=== PATIENT | female | born 1960 | race Caucasian/White ===

== ENCOUNTER 2017-10-15 11:33 | Emergency (ER) | payer SELFPAY ==
[2017-10-15] MEDS ORDERED: TETANUS & DIPHTHERIA TOX,ADULT 0.5 ML VIAL ONE (14:20)
[2017-10-15 14:50] LABS: Bicarbonate 26 mEq/L (21-31); Glucose Level 103 mg/dL (65-120); Sodium Level 136 mEq/L (135-145)
[2017-10-15 14:51] LABS: BUN Blood Urea Nitrogen 18 mg/dL (6-20)
--- NOTE | 2017-10-15 14:53 | RAD REPORT ---
EXAM DESCRIPTION: RAD -Hand Left 3 View - 10/15/2017 2:31 pm CLINICAL HISTORY: Left hand pain status post injury FINDINGS: No fracture or dislocation is seen.
[2017-10-15 14:56] LABS: Absolute Lymphocytes (CBC) 1.7 K/uL (0.7-4.9); Absolute Monocytes 0.5 K/uL (0.1-1.3); Basophils % 0.3 % (0-1.3); Eosinophils % 1.4 % (0-4.4); Lymphocytes % 26.9 % (15.3-44.8); MCH 30.8 pg (27.0-35.0); MCV 93.7 fL (80-100); MPV 8.1 fL (7.6-11.3); Monocytes % 8.3 % (3.3-12.3)
[2017-10-15] MEDS ORDERED: AMPICILLIN/SULBACT 3 GM in NA CHLORIDE 0.9% 100 ML IVPB ONE (15:00)
--- NOTE | 2017-10-15 16:03 | ER ---
Nurse's Notes [facility] Name: Ashley Zelaya Age: 57 yrs Sex: Female : 1960 Arrival Date: 10/15/2017 Time: 11:34 Bed 24 Private MD: None, None Diagnosis: Laceration without foreign body of left middle finger without damage to nail Presentation: 10/15 11:44 Presenting complaint: Patient states: left 3rd finger laceration that occurred 2 days sv ago and has been swelling since then. Pt reports cutting chicken at the time and was cut by the knife. Transition of care: patient was not received from another setting of care. Onset of symptoms was October 13, 2017. Risk Assessment: Do you want to hurt yourself or someone else? Patient reports no desire to harm self or others. Care prior to arrival: None. 11:44 Method Of Arrival: Ambulatory sv 11:44 Acuity: CARLA 3 sv 14:25 Initial Sepsis Screen: Does the patient meet any 2 criteria? No. Patient's initial ss sepsis screen is negative. Does the patient have a suspected source of infection? No. Patient's initial sepsis screen is negative. Historical: - Allergies: 11:46 No Known Allergies; sv - Home Meds: 11:46 None [Active]; sv - PMHx: 11:46 None; sv - PSHx: 11:46 None; sv - Immunization history:: Adult Immunizations up to date. - Social history:: Smoking status: Patient uses tobacco products, smokes one pack cigarettes per day. - Ebola Screening: : No symptoms or risks identified at this time. Screenin:07 Abuse screen: Denies threats or abuse. Denies injuries from another. Nutritional ss screening: No deficits noted. Tuberculosis screening: Never had TB. Fall Risk No fall in past 12 months (0 pts). Assessment: 14:07 General: Appears in no apparent distress. comfortable, Behavior is calm, cooperative, ss healing laceration noted to L third finger. Pt reports she cut it on unknown object three or four days ago. states, "it bled for two days, and started throbbing last night. I noticed the swelling yesterday.". Pain: Complains of pain in dorsal aspect of middle phalanx of left middle finger and dorsal aspect of proximal phalanx of left middle finger Pain currently is 8 out of 10 on a pain scale. Quality of pain is described as throbbing, Pain began 1 day ago. Is continuous, Aggravated by increased activity. Neuro: Level of Consciousness is awake, alert, obeys commands, Oriented to person, place, time, situation. Cardiovascular: Capillary refill < 3 seconds is brisk in bilateral fingers Patient's skin is warm and dry. Respiratory: Airway is patent Trachea midline Respiratory effort is even, unlabored, Respiratory pattern is regular, symmetrical, Breath sounds are clear bilaterally. GI: Patient currently denies diarrhea, nausea, vomiting. : No signs and/or symptoms were reported regarding the genitourinary system. EENT: Oral mucosa is moist. Poor dentition noted. Derm: Skin is intact, is healthy with good turgor, Skin is dry, Skin is pink, warm \\T\\ dry. normal. Musculoskeletal: Range of motion: intact in all extremities, Swelling present in dorsal aspect of middle phalanx of left middle finger and dorsal aspect of proximal phalanx of left middle finger. Vital Signs: 11:46 BP 114 / 77; Pulse 69; Resp 16; Temp 97.9; Pulse Ox 99% ; sv ED Course: 11:34 Patient arrived in ED. sb2 11:34 None, None is Private Physician. sb2 11:45 Triage completed. sv 11:45 Arm band placed on right wrist. sv 14:04 Deepa Brandon FNP-C is [facility]. snw 14:04 Seamus May MD is Attending Physician. snw 14:07 Patient has correct armband on for positive identification. Bed in low position. Call ss light in reach. Side rails up X 1. 14:25 X-ray completed. Portable x-ray completed in exam room. Patient tolerated procedure ag1 well. 14:26 Hand Left 3 View XRAY In Process Unspecified. EDMS 14:30 Inserted saline lock: 22 gauge in right antecubital area, using aseptic technique. Blood collected. 14:44 Mica Leon, MOHAMUD is Primary Nurse. ss 14:55 Wound care: to laceration x 4 days old located on dorsal aspect of proximal phalanx of ss left middle finger and dorsal aspect of middle phalanx of left middle finger was cleaned with Hibiclens, soaked in Hibiclens and normal saline. 16:01 Jerod Domingo MD is Referral Physician. snw 16:20 No provider procedures requiring assistance completed. IV discontinued, intact, ss bleeding controlled, No redness/swelling at site. Pressure dressing applied. 16:20 splint placed to L third finger as ordered. ss Administered Medications: 14:45 Drug: Hibiclens 4 % 1 application Route: Topical; Site: left hand; ss 14:45 Drug: Tetanus-Diphtheria Toxoid Adult 0.5 ml {Water And Gas Helper: [employer]. Exp: ss 01/12/2020. Lot #: [id number]. } Route: IM; Site: right deltoid; 15:33 Follow up: Response: No adverse reaction ss 14:46 Drug: Unasyn 3 grams Route: IVPB; Infused Over: 30 mins; Site: right antecubital; ss 15:32 Follow up: IV Status: Completed infusion ss 16:19 Drug: [place] 5 mg-325 mg 1 tabs Route: PO; ss 16:19 Follow up: Response: Medication administered at discharge. ss Outcome: 16:03 Discharge ordered by . snw 16:22 Discharged to home ambulatory. ss 16:22 Condition: good 16:22 Discharge instructions given to patient, Instructed on discharge instructions, follow up and referral plans. medication usage, Demonstrated understanding of instructions, follow-up care, medications, Prescriptions given X 3. 16:23 Patient left the ED. ss Signatures: Dispatcher [employer] Janina Gonsalves, RN RN Deepa Brandon, FLARE STITCHER-C FLARE STITCHER-Mica Segovia RN RN Jojo Christian ag1 Xi Hughes sb2 Corrections: (The following items were deleted from the chart) 14:11 14:07 General: Appears in no apparent distress. comfortable, Behavior is calm, ss cooperative, ss
--- NOTE | 2017-10-15 16:03 | EDPHYS ---
Physician Documentation [facility] Name: Ashley Zelaya Age: 57 yrs Sex: Female : 1960 Arrival Date: 10/15/2017 Time: 11:34 Bed 24 Private MD: None, None ED Physician Seamus May HPI: 10/15 15:33 This 57 yrs old Female presents to ER via Ambulatory with complaints of snw Finger Injury. 15:33 Trauma demographics: County: The injury occurred in [place] Location of Injury: The snw injury occurred at home. Mechanism of injury: laceration with kitchen knife. Associated injuries: The patient sustained decreased range of motion, laceration, painful injury, swelling. Onset: The symptoms/episode began/occurred suddenly, and became persistent. The patient has not experienced similar symptoms in the past. It is unknown whether or not the patient has recently seen a physician. Historical: - Allergies: 11:46 No Known Allergies; sv - Home Meds: 11:46 None [Active]; sv - PMHx: 11:46 None; sv - PSHx: 11:46 None; sv - Immunization history:: Adult Immunizations up to date. - Social history:: Smoking status: Patient uses tobacco products, smokes one pack cigarettes per day. - Ebola Screening: : No symptoms or risks identified at this time. ROS: 15:31 Constitutional: Negative for fever, chills, and weight loss, Eyes: Negative for injury, snw pain, redness, and discharge, ENT: Negative for injury, pain, and discharge, Neck: Negative for injury, pain, and swelling, Cardiovascular: Negative for chest pain, palpitations, and edema, Respiratory: Negative for shortness of breath, cough, wheezing, and pleuritic chest pain, Abdomen/GI: Negative for abdominal pain, nausea, vomiting, diarrhea, and constipation, Back: Negative for injury and pain, : Negative for injury, bleeding, discharge, and swelling, MS/Extremity: Negative for injury and deformity, Neuro: Negative for headache, weakness, numbness, tingling, and seizure. 15:31 Skin: Positive for laceration(s), of the dorsal aspect of middle phalanx of left middle finger, injury occurred 2 days ago, left middle digit now swollen, tender, extension mildly limited. Exam: 14:23 Constitutional: This is a well developed, well nourished patient who is awake, alert, snw and in no acute distress. Head/Face: Normocephalic, atraumatic. Eyes: Pupils equal round and reactive to light, extra-ocular motions intact. Lids and lashes normal. Conjunctiva and sclera are non-icteric and not injected. Cornea within normal limits. Periorbital areas with no swelling, redness, or edema. ENT: Nares patent. No nasal discharge, no septal abnormalities noted. Tympanic membranes are normal and external auditory canals are clear. Oropharynx with no redness, swelling, or masses, exudates, or evidence of obstruction, uvula midline. Mucous membranes moist. Neck: Trachea midline, no thyromegaly or masses palpated, and no cervical lymphadenopathy. Supple, full range of motion without nuchal rigidity, or vertebral point tenderness. No Meningismus. Chest/axilla: Normal chest wall appearance and motion. Nontender with no deformity. No lesions are appreciated. Cardiovascular: Regular rate and rhythm with a normal S1 and S2. No gallops, murmurs, or rubs. Normal PMI, no JVD. No pulse deficits. Respiratory: Lungs have equal breath sounds bilaterally, clear to auscultation and percussion. No rales, rhonchi or wheezes noted. No increased work of breathing, no retractions or nasal flaring. Abdomen/GI: Soft, non-tender, with normal bowel sounds. No distension or tympany. No guarding or rebound. No evidence of tenderness throughout. Back: No spinal tenderness. No costovertebral tenderness. Full range of motion. Neuro: Awake and alert, GCS 15, oriented to person, place, time, and situation. Cranial nerves II-XII grossly intact. Motor strength 5/5 in all extremities. Sensory grossly intact. Cerebellar exam normal. Normal gait. Psych: Awake, alert, with orientation to person, place and time. Behavior, mood, and affect are within normal limits. 14:23 Musculoskeletal/extremity: ROM: limited active range of motion due to pain, in the dorsal aspect of proximal phalanx of left middle finger, Circulation is intact in all extremities. Sensation intact. 14:23 Skin: injury, laceration(s), the wound is approximately 2 cm(s), with a depth of 1 cm(s), of the dorsal aspect of proximal phalanx of left middle finger. Vital Signs: 11:46 BP 114 / 77; Pulse 69; Resp 16; Temp 97.9; Pulse Ox 99% ; sv MDM: 14:05 Patient medically screened. snw 16:05 Data reviewed: vital signs, nurses notes. Data interpreted: Pulse oximetry: on room air snw is 99 %. Interpretation: normal. Counseling: I had a detailed discussion with the patient and/or guardian regarding: the historical points, exam findings, and any diagnostic results supporting the discharge/admit diagnosis, lab results, radiology results, the need for outpatient follow up, to return to the emergency department if symptoms worsen or persist or if there are any questions or concerns that arise at home. Special discussion: I discussed in detail with the patient the higher chance of wound infection based on his presenting history. Based on the history and exam findings, there is no indication for further emergent testing or inpatient evaluation. I discussed with the patient/guardian the need to see the hand specialist for further evaluation of the symptoms. I discussed with the patient/guardian the need to see the primary care provider for further evaluation of the symptoms. 10/15 14:16 Order name: CBC with Diff; Complete Time: 15:11 snw 10/15 14:16 Order name: Chem 7; Complete Time: 14:54 snw 10/15 14:16 Order name: Hand Left 3 View XRAY; Complete Time: 14:54 snw 10/15 14:16 Order name: Blood Culture* snw 10/15 16:01 Order name: Wound dressing; Complete Time: 16:11 snw 10/15 16:01 Order name: Finger Splint: in full extension until follow up; Complete Time: 16:11 snw Administered Medications: 14:45 Drug: Hibiclens 4 % 1 application Route: Topical; Site: left hand; ss 14:45 Drug: Tetanus-Diphtheria Toxoid Adult 0.5 ml {[employer] Consultant: [employer]. Exp: ss 01/12/2020. Lot #: [id number]. } Route: IM; Site: right deltoid; 15:33 Follow up: Response: No adverse reaction ss 14:46 Drug: Unasyn 3 grams Route: IVPB; Infused Over: 30 mins; Site: right antecubital; ss 15:32 Follow up: IV Status: Completed infusion ss 16:19 Drug: [place] 5 mg-325 mg 1 tabs Route: PO; ss 16:19 Follow up: Response: Medication administered at discharge. ss Disposition: 10/15/17 16:03 Discharged to Home. Impression: Laceration without foreign body of left middle finger without damage to nail. - Condition is Stable. - Discharge Instructions: Delayed Wound Closure, Laceration Care, Adult, Tendon Injury, Wound Infection, VIS, Tetanus, Diphtheria (Td) - [facility]. - Prescriptions for Keflex 500 mg Oral Capsule - take 1 capsule by ORAL route every 8 hours for 10 days; 30 capsule. Diclofenac Sodium 75 mg Oral Tablet Sustained Release - take 1 tablet by ORAL route 2 times per day; 30 tablet. Bactrim DS 800- 160 mg Oral Tablet - take 1 tablet by ORAL route every 12 hours for 10 days; 20 tablet. - Medication Reconciliation Form, Thank You Letter, Antibiotic Education, Prescription Opioid Use form. - Follow up: Jerod Domingo MD; When: 1 - 2 days; Reason: Recheck today's complaints, Continuance of care, Re-evaluation by your physician. Addendum: 10/19/2017 12:00 Co-signature as Attending Physician, Seamus May MD. g s Signatures: Dispatcher [employer] Janina Gonsalves RN RN Deepa Seymour, REECE-C FRUIT CUTTER-Mica Segovia RN RN ss Starr, Gregory, MD MD Corrections: (The following items were deleted from the chart) 10/15 16:23 16:03 10/15/2017 16:03 Discharged to Home. Impression: Laceration without foreign body ss of left middle finger without damage to nail. Condition is Stable. Forms are Medication Reconciliation Form, Thank You Letter, Antibiotic Education, Prescription Opioid Use. Follow up: Jerod Domingo; When: 1 - 2 days; Reason: Recheck today's complaints, Continuance of care, Re-evaluation by your physician. snw
[2017-10-15] MEDS ORDERED: HYDROCODONE/APAP 5/325 MG TAB ONE (16:14)
== END 2017-10-15 16:23 | disposition home or self-care (01) ==
LOC: ER 11:33
DX: S61.213A Laceration without foreign body of left middle finger without damage to nail, initial encounter (principal); W26.0XXA Contact with knife, initial encounter; Y93.89 Activity, other specified; Y92.009 Unspecified place in unspecified non-institutional (private) residence as the place of occurrence of the external cause; Z23 Encounter for immunization; F17.210 Nicotine dependence, cigarettes, uncomplicated
CPT/HCPCS: 36415; 80048; 85025; 87040; 90714; 96365; 99284; J0295

== ENCOUNTER 2018-08-15 18:40 | Emergency (ER) | payer SELFPAY ==
--- NOTE | 2018-08-15 20:23 | RAD REPORT ---
EXAM DESCRIPTION: RAD - Hand Right 3 View - 08/15/2018 8:07 pm CLINICAL HISTORY: Right hand pain FINDINGS: No fracture or dislocation is seen. Minimal narrowing involves DIP and PIP joints.
[2018-08-16 00:11] LABS: Absolute Lymphocytes (CBC) 1.8 K/uL (0.7-4.9); Absolute Neutrophil 8.4 K/uL (1.8-8.0); Basophils % 0.5 % (0-1.3); Eosinophils % 0.2 % (0-4.4); Hematocrit 43.6 % (36.0-45.0); Lymphocytes % 15.9 % (15.3-44.8); MPV 7.7 fL (7.6-11.3); Monocytes % 8.8 % (3.3-12.3); RBC Red Blood Cell Count 4.85 M/uL (3.86-4.86)
[2018-08-16] MEDS ORDERED: CLINDAMYCIN 900MG/D5W 900 MG/50 ML IVPB IV ONE (00:14)
[2018-08-16] MEDS ORDERED: FENTANYL CITR 100 MCG/2 ML ONE ×2 (00:14→03:58)
[2018-08-16] MEDS ORDERED: KETOROLAC 30 MG/ML INJ ONE (00:14)
[2018-08-16 00:24] LABS: BUN Blood Urea Nitrogen 15 mg/dL (7-18); Bicarbonate 28 mmol/L (21-32); Glucose Level 101 mg/dL (74-106); Potassium 3.7 mmol/L (3.5-5.1); Sodium Level 139 mmol/L (136-145)
[2018-08-16] MEDS ORDERED: LIDOCAINE 2% MPF 5 ML VIAL ONE (03:39)
--- NOTE | 2018-08-16 04:06 | ER ---
Nurse's Notes [facility] Name: Ashley Zelaya Age: 57 yrs Sex: Female : 1960 Arrival Date: 08/15/2018 Time: 18:43 Bed 20 Private MD: Diagnosis: Right Thumb Infection Presentation: 08/15 18:53 Presenting complaint: Patient states: Swelling and redness to right thumb that began 4 aa5 days ago. Pt denies known injury. Transition of care: patient was not received from another setting of care. Onset of symptoms was August 11, 2018. Risk Assessment: Do you want to hurt yourself or someone else? Patient reports no desire to harm self or others. Care prior to arrival: None. 18:53 Method Of Arrival: Ambulatory aa5 18:53 Acuity: CARLA 3 aa5 Historical: - Allergies: 18:54 No Known Allergies; aa5 - PMHx: 18:54 None; aa5 - PSHx: 18:54 None; aa5 - Immunization history:: Last tetanus immunization: < 5 years ago Flu vaccine is not up to date. - Social history:: Smoking status: Patient uses tobacco products, denies chronic smoking, but will smoke occasionally. - Ebola Screening: : No symptoms or risks identified at this time. - Family history:: not pertinent. - Hospitalizations: : No recent hospitalization is reported. Screenin:27 Abuse screen: Denies threats or abuse. Denies injuries from another. Nutritional ed1 screening: No deficits noted. Tuberculosis screening: No symptoms or risk factors identified. Fall Risk None identified. Assessment: 23:27 General: Appears uncomfortable, Behavior is calm, cooperative. Pain: Complains of pain ed1 in right thumb Pain radiates to right hand and right arm Pain currently is 10 out of 10 on a pain scale. Quality of pain is described as aching, throbbing, Pain began 2-3 days ago. Is continuous. Neuro: Level of Consciousness is awake, alert, obeys commands, Oriented to person, place, time, situation. Cardiovascular: Denies chest pain, Heart tones S1 S2 present. Respiratory: Airway is patent Respiratory effort is even, unlabored, Respiratory pattern is regular, symmetrical, Breath sounds are clear bilaterally. GI: No signs and/or symptoms were reported involving the gastrointestinal system. : No signs and/or symptoms were reported regarding the genitourinary system. EENT: No signs and/or symptoms were reported regarding the EENT system. Derm: Skin is intact, is healthy with good turgor, Skin is dry, Skin is normal, Skin temperature is warm. Musculoskeletal: Circulation, motion, and sensation intact. Capillary refill < 3 seconds, in bilateral fingers. Range of motion: limited in MCP of right thumb. 08/16 00:43 Reassessment: No changes from previously documented assessment. Patient and/or family ed1 updated on plan of care and expected duration. Pain level reassessed. Patient is alert, oriented x 3, equal unlabored respirations, skin warm/dry/pink. Patient states symptoms have not improved. 01:54 Reassessment: Patient and/or family updated on plan of care and expected duration. Pain ed1 level reassessed. Patient is alert, oriented x 3, equal unlabored respirations, skin warm/dry/pink. Patient states symptoms have not improved. 03:50 Reassessment: No changes from previously documented assessment. Patient and/or family ed1 updated on plan of care and expected duration. Pain level reassessed. Patient is alert, oriented x 3, equal unlabored respirations, skin warm/dry/pink. Dr. Rivera at bedside Patient states symptoms have not improved. 04:24 Reassessment: Pt does not have ride home at this time. Per Taniya, Charge Nurse, benson ed1 to stay in room until ride arrives. Vital Signs: 08/15 18:55 BP 139 / 87; Pulse 101; Resp 18 S; Temp 100.1(O); Pulse Ox 96% on R/A; Weight 62.6 kg aa5 (R); Height 5 ft. 7 in. (170.18 cm) (R); Pain 10/10; 22:57 BP 121 / 89; Pulse 95; Resp 17 S; Temp 99.0(O); Pulse Ox 96% on R/A; Pain 10/10; jd3 08/16 00:43 BP 126 / 84; Pulse 97; Resp 18; Pulse Ox 96% on R/A; Pain 10/10; ed1 01:54 BP 128 / 82; Pulse 94; Resp 20; Temp 100.9(O); Pulse Ox 97% on R/A; Pain 10/10; ed1 03:50 BP 124 / 81; Pulse 92; Resp 20; Temp 99.2(O); Pulse Ox 99% on R/A; Pain 10/10; ed1 04:26 Pain 4/10; ed1 08/15 18:55 Body Mass Index 21.61 (62.60 kg, 170.18 cm) aa5 ED Course: 08/15 18:43 Patient arrived in ED. ss4 18:54 Triage completed. aa5 18:54 Arm band placed on. aa5 20:09 Hand Right 3 View XRAY In Process Unspecified. EDMS 23:01 Nemo Hyde, RN is Primary Nurse. ed1 23:05 Dario Rivera MD is Attending Physician. ar 23:27 Patient has correct armband on for positive identification. Bed in low position. Call ed1 light in reach. [id number] 00:11 Initial lab(s) drawn, by me, sent to lab. Inserted saline lock: 22 gauge in left ed1 forearm, using aseptic technique. Blood collected. 01:55 Patient requests pain medication. ed1 03:50 Assist provider with I \T\ D: of an abscess on right thumb Set up I\T\D tray. Performed by ed 1 Dario Rivera MD Dressing with 4X4s, coban Patient tolerated well. 04:04 Jerod Domingo MD is Referral Physician. ar 04:27 Resting quietly. Awaiting transportation. ed1 06:30 IV discontinued, intact, bleeding controlled, No redness/swelling at site. Pressure ed1 dressing applied. Administered Medications: 00:10 Drug: Clindamycin 900 mg Route: IVPB; Infused Over: 30 mins; Site: left forearm; ed1 00:44 Follow up: Response: No adverse reaction; IV Status: Completed infusion; IV Intake: [id number] 00:10 Drug: TORadol 30 mg Route: IVP; Site: left forearm; ed1 00:44 Follow up: Response: No adverse reaction; Pain is unchanged, physician notified ed1 00:10 Drug: fentaNYL (PF) 75 mcg Route: IVP; Site: left forearm; ed1 00:44 Follow up: Response: No adverse reaction; Pain is unchanged, physician notified ed1 03:50 Drug: fentaNYL (PF) 100 mcg Route: IVP; Site: left forearm; ed1 04:26 Follow up: Pain 08/22 Adult; Response: No adverse reaction; Pain is decreased ed1 Intake: 00:44 IV: 50ml; Total: 50ml. ed1 Outcome: 04:06 Discharge ordered by . rosamaria 06:30 Discharged to home ambulatory, with family. ed1 06:30 Condition: good 06:30 Discharge instructions given to patient, Instructed on discharge instructions, follow up and referral plans. medication usage, wound care, Demonstrated understanding of instructions, follow-up care, medications, wound care, Prescriptions given X 2. 06:34 Patient left the ED. ed1 Signatures: Dispatcher [employer] EDMS Shamika Torres RN RN aa5 Nemo Hyde RN RN ed1 Dario Rivera MD MD wa Davies, Jonathon, RN RN Janina Gore 4
--- NOTE | 2018-08-16 04:06 | EDPHYS ---
Physician Documentation [facility] Name: Ashley Zelaya Age: 57 yrs Sex: Female : 1960 Arrival Date: 08/15/2018 Time: 18:43 Bed 20 Private MD: ED Physician Dario Rivera HPI: 08/16 08:20 This 57 yrs old Female presents to ER via Ambulatory with complaints of Hand wa Swelling. 08:20 The patient or guardian reports pain, swelling, tenderness. The complaints affect the R wa thumb. Context: The problem was sustained at home, resulted from an unknown cause, c/o R thumb swelling, redness and discoloration x 4 days. Onset: The symptoms/episode began/occurred 4 day(s) ago. Modifying factors: The symptoms are alleviated by nothing, the symptoms are aggravated by movement, dependent position, palpation. Associated signs and symptoms: Pertinent negatives: decreased sensation distally, fever, numbness distally, tingling distally. Severity of symptoms: At their worst the symptoms were severe, in the emergency department the symptoms are unchanged. The patient has not experienced similar symptoms in the past. The patient has not recently seen a physician. Historical: - Allergies: 08/15 18:54 No Known Allergies; aa5 - PMHx: 18:54 None; aa5 - PSHx: 18:54 None; aa5 - Immunization history:: Last tetanus immunization: < 5 years ago Flu vaccine is not up to date. - Social history:: Smoking status: Patient uses tobacco products, denies chronic smoking, but will smoke occasionally. - Ebola Screening: : No symptoms or risks identified at this time. - Family history:: not pertinent. - Hospitalizations: : No recent hospitalization is reported. ROS: 08/16 08:22 Constitutional: Negative for fever, chills, and weight loss, Eyes: Negative for injury, wa pain, redness, and discharge, ENT: Negative for injury, pain, and discharge, Neck: Negative for injury, pain, and swelling, Cardiovascular: Negative for chest pain, palpitations, and edema, Respiratory: Negative for shortness of breath, cough, wheezing, and pleuritic chest pain, Abdomen/GI: Negative for abdominal pain, nausea, vomiting, diarrhea, and constipation, Back: Negative for injury and pain, : Negative for injury, bleeding, discharge, and swelling, Skin: Negative for injury, rash, and discoloration, Neuro: Negative for headache, weakness, numbness, tingling, and seizure, Psych: Negative for depression, anxiety, suicide ideation, homicidal ideation, and hallucinations. MS/extremity: Positive for pain, swelling, tenderness, warmth, of the right thumb. Exam: 08:23 Constitutional: This is a well developed, well nourished patient who is awake, alert, wa and in no acute distress. Head/Face: Normocephalic, atraumatic. Eyes: Pupils equal round and reactive to light, extra-ocular motions intact. Lids and lashes normal. Conjunctiva and sclera are non-icteric and not injected. Cornea within normal limits. Periorbital areas with no swelling, redness, or edema. ENT: Nares patent. No nasal discharge, no septal abnormalities noted. Tympanic membranes are normal and external auditory canals are clear. Oropharynx with no redness, swelling, or masses, exudates, or evidence of obstruction, uvula midline. Mucous membranes moist. Neck: Trachea midline, no thyromegaly or masses palpated, and no cervical lymphadenopathy. Supple, full range of motion without nuchal rigidity, or vertebral point tenderness. No Meningismus. Chest/axilla: Normal chest wall appearance and motion. Nontender with no deformity. No lesions are appreciated. Cardiovascular: Regular rate and rhythm with a normal S1 and S2. No gallops, murmurs, or rubs. Normal PMI, no JVD. No pulse deficits. Respiratory: Lungs have equal breath sounds bilaterally, clear to auscultation and percussion. No rales, rhonchi or wheezes noted. No increased work of breathing, no retractions or nasal flaring. Abdomen/GI: Soft, non-tender, with normal bowel sounds. No distension or tympany. No guarding or rebound. No evidence of tenderness throughout. Back: No spinal tenderness. No costovertebral tenderness. Full range of motion. Skin: Warm, dry with normal turgor. Normal color with no rashes, no lesions, and no evidence of cellulitis. Neuro: Awake and alert, GCS 15, oriented to person, place, time, and situation. Cranial nerves II-XII grossly intact. Motor strength 5/5 in all extremities. Sensory grossly intact. Cerebellar exam normal. Normal gait. Psych: Awake, alert, with orientation to person, place and time. Behavior, mood, and affect are within normal limits. 08:23 Musculoskeletal/extremity: Extremities: grossly normal except: noted in the distal aspect of right thumb involving tuft and nailbed: decreased ROM, erythema, pain, swelling, tenderness. Vital Signs: 08/15 18:55 BP 139 / 87; Pulse 101; Resp 18 S; Temp 100.1(O); Pulse Ox 96% on R/A; Weight 62.6 kg aa5 (R); Height 5 ft. 7 in. (170.18 cm) (R); Pain 10/10; 22:57 BP 121 / 89; Pulse 95; Resp 17 S; Temp 99.0(O); Pulse Ox 96% on R/A; Pain 10/10; jd3 08/16 00:43 BP 126 / 84; Pulse 97; Resp 18; Pulse Ox 96% on R/A; Pain 10/10; ed1 01:54 BP 128 / 82; Pulse 94; Resp 20; Temp 100.9(O); Pulse Ox 97% on R/A; Pain 10/10; ed1 03:50 BP 124 / 81; Pulse 92; Resp 20; Temp 99.2(O); Pulse Ox 99% on R/A; Pain 10/10; ed1 04:26 Pain 4/10; ed1 08/15 18:55 Body Mass Index 21.61 (62.60 kg, 170.18 cm) aa5 Procedures: 08:24 I \T\ D: Incision and drainage was performed for an abscess of the right right distal wa thumb Prepped with Betadine, Anesthetized with 2 ml's 1% Lidocaine. Incised with #11 blade. Drained moderate amount purulent fluid. Dressing: sterile 4x4 gauze, the patient tolerated the procedure well. MDM: 08/15 23:05 Patient medically screened. oh 08/16 08:25 Differential diagnosis: suspect infected tuft and base od thumb. r/o FB or bony wa involvement w/ x-ray. Data reviewed: vital signs, nurses notes. Test interpretation: by ED physician or midlevel provider: R thumb x-ray: no fx. no FB. Response to treatment: the patient's symptoms have markedly improved after treatment. 08:26 Test interpretation: by ED physician or midlevel provider: mild leukocytosis. ED oh course: received pain meds and IV abx. 08/15 23:38 Order name: CBC with Diff; Complete Time: 01:45 oh 08/15 23:38 Order name: BMP; Complete Time: 03:12 oh 08/15 18:56 Order name: Hand Right 3 View XRAY; Complete Time: 22:00 aa 08/15 23:38 Order name: IV Start; Complete Time: 00:00 08/15 23:39 Order name: I\T\D Setup; Complete Time: 00:11 oh Administered Medications: 00:10 Drug: Clindamycin 900 mg Route: IVPB; Infused Over: 30 mins; Site: left forearm; ed1 00:44 Follow up: Response: No adverse reaction; IV Status: Completed infusion; IV Intake: [id number] 00:10 Drug: TORadol 30 mg Route: IVP; Site: left forearm; ed1 00:44 Follow up: Response: No adverse reaction; Pain is unchanged, physician notified ed1 00:10 Drug: fentaNYL (PF) 75 mcg Route: IVP; Site: left forearm; ed1 00:44 Follow up: Response: No adverse reaction; Pain is unchanged, physician notified ed1 03:50 Drug: fentaNYL (PF) 100 mcg Route: IVP; Site: left forearm; ed1 04:26 Follow up: Pain 4/10 Adult; Response: No adverse reaction; Pain is decreased ed1 Disposition: 08/16/18 04:06 Discharged to Home. Impression: Right Thumb Infection. - Condition is Stable. - Discharge Instructions: Fingertip Infection. - Prescriptions for Doxycycline Hyclate 100 mg Oral Tablet - take 1 tablet by ORAL route every 12 hours; 20 tablet. Tramadol 50 mg Oral Tablet - take 1 tablet by ORAL route every 8 hours as needed; 20 tablet. - Medication Reconciliation Form, Thank You Letter, Antibiotic Education, Prescription Opioid Use form. - Follow up: Jerod Domingo MD; When: 1 - 2 days; Reason: Recheck today's complaints. - Problem is new. - Symptoms have improved. - Notes: take antibiotics as prescribed. Signatures: Dispatcher [employer] EDMS Deepa Brandon, REECE-[employer] BUSINESS ASSOCIATE-[employer] Shamika Torres RN RN aa5 Nemo Hyde RN RN ed1 Dario Rivera MD MD wa Corrections: (The following items were deleted from the chart) 06:34 04:06 08/16/2018 04:06 Discharged to Home. Impression: Right Thumb Infection. Condition ed1 is Stable. Forms are Medication Reconciliation Form, Thank You Letter, Antibiotic Education, Prescription Opioid Use. Follow up: Jerod Domingo; When: 1 - 2 days; Reason: Recheck today's complaints. Problem is new. Symptoms have improved. rosamaria
== END 2018-08-16 06:34 | disposition home or self-care (01) ==
LOC: ER 18:40
PROC: 0H9FXZZ Drainage of Right Hand Skin, External Approach (ICD-10-PCS; principal; 2018-08-16)
DX: L02.511 Cutaneous abscess of right hand (principal); Z72.0 Tobacco use
CPT/HCPCS: 36415; 80048; 85025; 96365; 96375; 99284; J3010